=== PATIENT | female | born 1990 | race American Indian/Alaskan Native ===

== ENCOUNTER 2019-12-11 21:39 | Emergency (ER) | payer SELFPAY ==
[2019-12-11 21:59] VITALS: BP 138/83
[2019-12-11 23:39] LABS: Bilirubin,Urine NEG (Negative); Blood,Urine LG (Negative); Color,Urine Yellow (Yellow); Mucus,Urine 3+ /HPF; Urobilinogen,Urine < 2.0 mg/dL (<2.0)
[2019-12-11 23:43] LABS: RBC,Urine > 182.0 /HPF (0.0-6.0); WBC,Urine > 182.0 /HPF (0.0-6.0)
[2019-12-11 23:44] LABS: HCG Qualitative,Urine Negative (Negative)
== END 2019-12-12 00:45 | disposition left against medical advice (07) ==
LOC: ED 21:39
DX: R30.0 Dysuria (principal); Z53.21 Procedure and treatment not carried out due to patient leaving prior to being seen by health care provider
CPT/HCPCS: 81001; 81025

== ENCOUNTER 2021-02-25 07:34 | Emergency (ER) | payer MEDICAID ==
[2021-02-25] MEDS ORDERED: LIDOCAINE (1%) 10 MG/1 ML VIAL 20 ML MDV INFILTRATI ONE (10:43)
[2021-02-25] MEDS ORDERED: METOCLOPRAMIDE 10 MG TAB PO ONE (11:13)
[2021-02-25] MEDS ORDERED: LIDOCAINE-MPF (1%) 10 MG/1 ML VIAL 5 ML INFILTRATI ONE (11:13)
[2021-02-25] MEDS ORDERED: AZITHROMYCIN 250 MG TAB PO ONE (11:13)
--- NOTE | 2021-02-25 12:47 | Emergency Department Report ---
ED General Adult HPI - General Chief complaint: Urogenital-Female Stated complaint: CYSTS ON VAGINA Time Seen by Provider: 02/25/21 09:10 Source: patient Mode of arrival: Ambulatory Limitations: No Limitations - History of Present Illness Initial comments: 30-year-old female patient (25 weeks gestation) presents to the emergency department with complaints of a "cyst" on her vagina for 1 week. Patient was evaluated by her blueprint processor, who reportedly told her that the issue would resolve on its own. However, the pain has worsened. The affected area has not been draining. Patient has previously been treated for STDs. Denies fever, chills, abdominal pain, pelvic pain, vaginal bleeding, vaginal discharge, nausea, vomiting. Denies all other complaints at this time. - Related Data Previous Rx's Medication Instructions Recorded Last Taken Type Amoxicillin/Potassium Clav 1 each PO BID 7 Days tablet 02/25/21 Unknown Rx [Augmentin 875-125 Tablet] Clindamycin [Clindamycin CAP] 450 mg PO Q8HR 7 Days capsule 02/25/21 Unknown Rx Allergies Allergy/AdvReac Type Severity Reaction Status Date / Time No Known Allergies Allergy Verified 12/11/19 21:56 ED Review of Systems ROS: Stated complaint: CYSTS ON VAGINA Other details as noted in HPI Other: GENERAL: Negative for fever, chills, weight change, anorexia, fatigue. ENT: Negative for ear pain, difficulty hearing, sore throat, nasal congestion, epistaxis. CARDIOVASCULAR: Negative for chest pain, palpitations, lower extremity swelling. PULMONARY: Negative for cough, dyspnea, wheezing, orthopnea, cyanosis. GASTROINTESTINAL: Negative for abdominal pain, nausea, vomiting, diarrhea, constipation. GENITOURINARY: Positive for vaginal discomfort. MUSCULOSKELETAL: Negative for joint pain, joint swelling, myalgias, back pain, neck pain. NEUROLOGICAL: Negative for headache, seizure, syncope, paresthesias, weakness. INTEGUMENTARY: Negative for erythema, rash, diaphoresis, laceration, ecchymosis. HEMATOLOGICAL: Negative for hemoptysis, hematemesis, hematochezia, hematuria. PSYCHIATRIC: Negative for hallucinations, suicidal ideation, homicidal ideation, anxiety, depression. ED Past Medical Hx - Past Medical History Previous Medical History?: Yes Additional medical history: low BP - Surgical History Past Surgical History?: No - Medications Home Medications: Home Medications Medication Instructions Recorded Confirmed Last Taken Type Amoxicillin/Potassium Clav 1 each PO BID 7 Days tablet 02/25/21 Unknown Rx [Augmentin 875-125 Tablet] Clindamycin [Clindamycin CAP] 450 mg PO Q8HR 7 Days capsule 02/25/21 Unknown Rx ED Physical Exam - General Limitations: No Limitations - Other Other exam information: General: Awake, appropriately interactive, no acute distress. Neck: Supple. Full range of motion intact. Cardiovascular: Normal peripheral perfusion. Pulmonary: No respiratory distress. Patient is speaking normally without use of accessory muscles. Pelvic: Female bench tool maker (Angela Keller PA-C) present. There is a large fluctuant tender area along the left vulvar region with overlying warmth and erythema. No satellite lesions. No regional lymphadenopathy. Skin: No apparent rashes or lesions. Neurological: No facial asymmetry. Speech is clear. Follows commands. Patient is alert and oriented. Musculoskeletal: Moves all four extremities spontaneously with normal range of motion. Psych: Cooperative. Appropriate mood and affect. ED Course Vital Signs 02/25/21 02/25/21 07:44 13:42 Temperature 98.3 F Pulse Rate 76 74 Respiratory 16 Rate Blood Pressure 109/65 Blood Pressure 120/78 [Right] O2 Sat by Pulse 100 Oximetry - Procedure Description Procedures done: Verbal consent was obtained from the patient. The area was prepped and draped. The area was cleansed with Betadine. Local anesthesia was performed using lidocaine 1%. Approximately 5 cc were infused into the area. A small incision was made along the medial aspect of the abscess using a #11 scalpel. Approximately 40 cc's of purulent matter was drained successfully. Patient expressed significant pain relief following the procedure. Female bench tool maker (Shanae Babin RN) present throughout the entirety of the procedure. Estimated blood loss 2 mL. Patient tolerated well without complications. ED Medical Decision Making - Medical Decision Making Differential diagnosis including but not limited to: Bartholin abscess, [place] gland abscess, vulvovaginitis, sexually transmitted infection Patient presents emergency department with signs/symptoms consistent with vulvar abscess. She is afebrile and hemodynamically stable. She is 25 weeks ; specifically denies abdominal pain, pelvic pain, vaginal bleeding, urinary symptoms. Incision and drainage performed without complications. See procedure note for details. Patient reports significant pain relief following the procedure. Although patient does not currently express concern for STD ex posure, she will be treated empirically due to history of prior sexually transmitted infection. Patient will also be discharged home with Clindamycin + Augmentin ( category B) per current UpToDate guidelines. Emphasized importance of following up with her blueprint processor for reevaluation this week. Patient expressed understanding and is agreeable to plan of care. Wound care precautions discussed. Strict return precautions provided. Repeat exam is unremarkable and benign. History, exam, diagnostic testing, and current condition do not suggest worrisome pathology to warrant further testing, continued ED treatment, admission, or surgical evaluation at this point. Given the low probability of a significant medical illness, it would be more likely to result in harm than benefit to perform further testing at this stage. Discussed findings, presumptive diagnosis, need for follow-up and specific signs/symptoms that should prompt immediate return to the emergency department. Instructions were explained in detail to the patient in addition to giving written discharge information. Patient expressed understanding and was given the opportunity to ask questions, all of which were satisfactorily answered prior to discharge home. Critical care attestation.: If time is entered above; I have spent that time in minutes in the direct care of this critically ill patient, excluding procedure time. ED Disposition Clinical Impression: Vulvar abscess Disposition: DC-01 TO HOME OR SELFCARE Is pt being admited?: No Does the pt Need Aspirin: No Condition: Stable Instructions: Bartholin's Cyst, [id number] Additional Instructions: Take Tylenol every 4 hours as needed for pain. Take Augmentin and Clindamycin with food as directed. Increase your dietary intake of probiotic rich foods while taking these medications. Apply warm compresses to the affected area at least 3 times daily. The area may continue to drain on its own. Do not forcefully attempt to express drainage from the area. Follow-up with your blueprint processor this week. Call today to schedule an appointment. Return to the emergency department immediately for new or worsening symptoms. Specifically, return to the emergency department immediately for fever, vaginal bleeding, abdominal/pelvic pain, difficulty using the bathroom, or any other concerns. Prescriptions: Amoxicillin/Potassium Clav [Augmentin 875-125 Tablet] 1 each PO BID 7 Days tablet Clindamycin [Clindamycin CAP] 450 mg PO Q8HR 7 Days capsule Referrals: [facility] [Provider Group] - 3-5 Days Forms: Work/School Release Form(ED) Time of Disposition: 13:08
[2021-02-25 13:43] VITALS: BP 120/78
== END 2021-02-25 13:43 | disposition home or self-care (01) ==
LOC: ED 07:34
DX: N76.4 Abscess of vulva (principal); Z79.2 Long term (current) use of antibiotics
CPT/HCPCS: 56405; 96372; 99282; J0696